=== PATIENT | male | born 1985 | race Caucasian/White ===

== ENCOUNTER 2021-01-25 06:00 | Emergency (ER) | payer BC ==
[~2021-01-25] VITALS: Ht 182.9 cm; Wt 93.2 kg
[2021-01-25 06:09] VITALS: BP 139/94; PULSE 78; TEMP 97.3
[2021-01-25] MEDS ORDERED: VALIUM 5MG T5 MG/TAB PO (06:33)
== END 2021-01-25 06:47 | disposition home or self-care (01) ==
LOC: COL.ER 06:00
DX: M54.16 Radiculopathy, lumbar region (principal); Z88.8 Allergy status to other drugs, medicaments and biological substances
CPT/HCPCS: J1100

== ENCOUNTER 2022-08-15 09:24 | Emergency (ER) | payer SELFPAY ==
[~2022-08-15] VITALS: Ht 182.9 cm; Wt 91.4 kg
[~2022-08-15 09:24] MED LIST: VALIUM 5MG T5 MG/TAB PO
[2022-08-15 09:31] VITALS: TEMP 99.2
[2022-08-15 09:43] LABS: BASO % 0.7 % (0.0-2.0); EOS # 0.3 K/mm3 (0.0-0.7); EOS % 5.6 % (0.0-4.0); GRAN # 3.6 K/mm3 (1.4-6.5); HEMATOCRIT 41.4 % (42.0-52.0); HEMOGLOBIN 14.3 g/dl (13.5-18.0); LYMPH # 1.3 K/mm3 (1.2-3.4); MEAN CELL VOLUME 82 fl (80.0-100.0); MEAN CORPUSCULAR HEMOGLOBIN 28 pg (27-31); MEAN CORPUSCULAR HGB CONC 35 g/dl (33.0-37.0); MEAN PLATELET VOLUME 9.5 fl (7.4-10.4); MONO # 0.6 K/mm3 (0.1-0.6); MONO % 9.4 % (1.7-9.3); PLATELET COUNT 301 K/mm3 (130-400); RED BLOOD COUNT 5.04 M/mm3 (4.20-5.60); REDCELL DISTRIBUTION WIDTH-CV 11.7 % (11.5-14.5)
[2022-08-15] MEDS ORDERED: DOXYCYCLINE 10100 MG PO (10:41)
[2022-08-15 11:01] VITALS: BP 116/79; PULSE 91
== END 2022-08-15 11:04 | disposition home or self-care (01) ==
LOC: COL.ER 09:24
PROVIDERS: Emergency Medicine
DX: J18.9 Pneumonia, unspecified organism (principal); Z28.310 Unvaccinated for COVID-19; Z20.822 Contact with and (suspected) exposure to COVID-19

== ENCOUNTER 2022-08-18 16:06 | Emergency (ER) | payer SELFPAY ==
[~2022-08-18] VITALS: Ht 182.9 cm; Wt 90.9 kg
[~2022-08-18 16:06] MED LIST changes: +DOXYCYCLINE 10100 MG PO
[2022-08-18 16:14] VITALS: TEMP 98
[2022-08-18 16:56] LABS: BASO % 0.6 % (0.0-2.0); EOS # 0.3 K/mm3 (0.0-0.7); EOS % 4.8 % (0.0-4.0); GRAN # 3.6 K/mm3 (1.4-6.5); GRAN % 57.4 % (42.2-75.2); HEMATOCRIT 39.4 % (42.0-52.0); HEMOGLOBIN 14.2 g/dl (13.5-18.0); LYMPH # 1.7 K/mm3 (1.2-3.4); LYMPH % 26.9 % (20.0-51.0); MEAN CELL VOLUME 79 fl (80.0-100.0); MEAN CORPUSCULAR HEMOGLOBIN 29 pg (27-31); MEAN CORPUSCULAR HGB CONC 36 g/dl (33.0-37.0); MEAN PLATELET VOLUME 9.6 fl (7.4-10.4); MONO # 0.6 K/mm3 (0.1-0.6); MONO % 9.7 % (1.7-9.3); PLATELET COUNT 353 K/mm3 (130-400); RED BLOOD COUNT 4.98 M/mm3 (4.20-5.60); REDCELL DISTRIBUTION WIDTH-CV 11.5 % (11.5-14.5)
[2022-08-18 17:13] LABS: ALANINE AMINOTRANSFERASE 106 U/L (0-55); ALBUMIN 4.2 gm/dL (3.5-5.0); ALKALINE PHOSPHATASE 136 U/L (40-150); ANION GAP 12 mmol/L (7-16); AST,SGOT 52 U/L (5-34); BILIRUBIN,TOTAL 0.8 mg/dL (0.2-1.2); BLOOD UREA NITROGEN 15 mg/dL (9-21); CALCIUM 9.2 mg/dL (8.4-10.2); CARBON DIOXIDE 22 mmol/L (22-29); CHLORIDE 107 mmol/L (98-107); CREATININE, serum 0.98 mg/dL (0.72-1.25); GLUCOSE 124 mg/dL (70-99); POTASSIUM 3.8 mmol/L (3.5-4.5); SODIUM 141 mmol/L (136-145); TOTAL PROTEIN 7.4 gm/dL (6.2-8.1)
[2022-08-18 17:23] LABS: TROPONIN-I < 0.010 ng/mL (0.00-0.033)
[2022-08-18] MEDS ORDERED: ZITHROMAX Z PA250 MG PO (18:29)
[2022-08-18] MEDS ORDERED: TESSALON PERLE200 MG PO (18:30)
[2022-08-18 18:47] VITALS: BP 142/78; PULSE 76
== END 2022-08-18 18:48 | disposition home or self-care (01) ==
LOC: COL.ER 16:06
PROVIDERS: Physician Assistant
DX: J18.9 Pneumonia, unspecified organism (principal); Z87.891 Personal history of nicotine dependence; Z88.6 Allergy status to analgesic agent
CPT/HCPCS: J0696; J1885; Q9967

== ENCOUNTER 2024-07-14 18:18 | Emergency (ER) | payer SELFPAY ==
[~2024-07-14] VITALS: Ht 182.9 cm; Wt 86.4 kg
[~2024-07-14 18:18] MED LIST changes: +TESSALON PERLE200 MG PO; +ZITHROMAX Z PA250 MG PO
[2024-07-14 18:23] VITALS: TEMP 97.2
[2024-07-14] MEDS ORDERED: LORazepam 2 MG/ML 1 ML VIAL IV ONE (18:45)
[2024-07-14] MEDS ORDERED: NS 1,000 ML IV ONE (18:45)
[2024-07-14 18:46] LABS: BASO % 0.4 % (0.0-2.0); EOS # 0.1 K/mm3 (0.0-0.7); EOS % 1.8 % (0.0-4.0); GRAN # 4.7 K/mm3 (1.4-6.5); GRAN % 61.6 % (42.2-75.2); HEMATOCRIT 41.3 % (42.0-52.0); HEMOGLOBIN 15.2 g/dl (13.5-18.0); LYMPH # 2.2 K/mm3 (1.2-3.4); LYMPH % 28.9 % (20.0-51.0); MEAN CELL VOLUME 82 fl (80.0-100.0); MEAN CORPUSCULAR HEMOGLOBIN 30 pg (27-31); MEAN CORPUSCULAR HGB CONC 37 g/dl (33.0-37.0); MEAN PLATELET VOLUME 9.8 fl (7.4-10.4); MONO # 0.6 K/mm3 (0.1-0.6); MONO % 7.2 % (1.7-9.3); PLATELET COUNT 283 K/mm3 (130-400); RED BLOOD COUNT 5.07 M/mm3 (4.20-5.60); REDCELL DISTRIBUTION WIDTH-CV 11.5 % (11.5-14.5)
[2024-07-14 19:01] LABS: ALANINE AMINOTRANSFERASE 31 U/L (0-55); ALBUMIN 4.9 g/dL (3.5-5.0); ALKALINE PHOSPHATASE 58 U/L (40-150); ANION GAP 15 mmol/L (7-16); AST,SGOT 24 U/L (5-34); BILIRUBIN,TOTAL 0.8 mg/dL (0.2-1.2); BLOOD UREA NITROGEN 18 mg/dL (9-21); CALCIUM 9.9 mg/dL (8.4-10.2); CHLORIDE 107 mEq/L (98-107); CREATININE, serum 1.18 mg/dL (0.72-1.25); GLUCOSE 134 mg/dL (70-99); POTASSIUM 3.1 mEq/L (3.5-4.5); SODIUM 142 mEq/L (136-145)
[2024-07-14 19:07] LABS: TROPONIN-I < 0.010 ng/mL (0.00-0.033)
[2024-07-14 21:19] VITALS: BP 105/62; PULSE 77
== END 2024-07-14 21:25 | disposition home or self-care (01) ==
LOC: COL.ER 18:18
PROVIDERS: Personal Emergency Response Attendant
DX: R07.89 Other chest pain (principal)
CPT/HCPCS: J2060; J7030